=== PATIENT | female | born 1965 | race Caucasian/White ===

== ENCOUNTER 2020-04-30 17:42 | Emergency (ER) | payer OTHER ==
[2020-04-30 17:47] VITALS: BMI 33.3
--- NOTE | 2020-04-30 17:47 | PDOC ---
Rapid Medical Evaluation Chief Complaint: Pain Time Seen by Provider: 04/30/20 17:43 Medical Evaluation: Allergies Allergy/AdvReac Type Severity Reaction Status Date / Time No Known Allergies Allergy Verified 11/13/13 09:17 04/30/20 17:44 CC: abd pain due to hernia pain and unable to reduce, had it for years, no vomiting no other complaints Exam: tender firm mass palpable to upper umbilical region Plan: attempt further reduction Discharge Disposition - Diagnosis Hernia - Referrals - Patient Instructions - Post Discharge Activity
[2020-04-30] MEDS ORDERED: MAG HYDROX/AL HYDROX/SIMETH 30 ML UNIT-DOSE CUP PO ONE (18:02)
[2020-04-30] MEDS ORDERED: hydrALAZINE HCL 50 MG TABLET (FP) PO ONE (18:05)
--- NOTE | 2020-04-30 18:07 | PDOC ---
History of Present Illness - General Chief Complaint: Pain Stated Complaint: ABDOMINAL PAIN Time Seen by Provider: 04/30/20 17:43 - History of Present Illness Initial Comments: 04/30/20 18:06 55-year-old female with a past medical history of hypertension presents with epigastric pain x1 day no systemic symptoms no nausea vomitingNo chest pain Past History - Medical History Allergies/Adverse Reactions: Allergies Allergy/AdvReac Type Severity Reaction Status Date / Time No Known Allergies Allergy Verified 11/13/13 09:17 Home Medications: Ambulatory Orders Amlodipine Besylate 10 mg PO DAILY 04/30/20 Furosemide [Lasix] 20 mg PO DAILY 04/30/20 Hydralazine HCl 25 mg PO TID 04/30/20 Nebivolol HCl [Bystolic] 2.5 mg PO DAILY 04/30/20 HTN: Yes Hypercholesterolemia: Yes - Psycho-Social/Smoking History Smoking History: Never smoked Have you smoked in the past 12 months: No - Substance Abuse Hx (Audit-C & DAST Scrn) How often the patient has a drink containing alcohol: Never Score: In Men: 4 or > Positive; In Women: 3 or > Positive: 0 Screen Result (Pos requires Nsg. Audit-10AR): Negative In the last yr the pt used illegal drug/Rx for NonMed reason: No Score: Yes response is considered Positive: 0 Screen Result (Positive result requires Nsg. DAST-10): Negative Review of Systems - Review of Systems Constitutional: No: Fever ABD/GI: Yes: See HPI. No: Nausea, Vomiting *Physical Exam - Vital Signs Last Vital Signs Temp Pulse Resp BP Pulse Ox 99.5 F 70 17 179/84 H 99 04/30/20 17:43 04/30/20 17:43 04/30/20 17:43 04/30/20 17:43 04/30/20 17:43 - Physical Exam 04/30/20 18:07 GENERAL: The patient is awake, alert, and fully oriented, in no acute distress. HEAD: Normal with no signs of trauma. EYES: sclera anicteric, conjunctiva clear. ENT: Ears normal tympanic membranes normal oropharynx clear uvula midline NECK: Normal range of motion LUNGS: Breath sounds equal, clear to auscultation bilaterally. No wheezes, and no crackles. HEART: S1 and S2 without murmur, rub or gallop. ABDOMEN: Soft, nontender, normoactive bowel sounds. No guarding, no rebound. No masses. EXTREMITIES: Normal range of motion, no edema. No clubbing or cyanosis. No cords, erythema, or tenderness. NEUROLOGICAL: Cranial nerves II through XII grossly intact. PSYCH: Normal mood, normal affect. SKIN: Warm, Dry, normal turgor, no rashes or lesions noted. ED Treatment Course - LABORATORY CBC & Chemistry Diagram: 04/30/20 18:45 04/30/20 18:45 Medical Decision Making - Medical Decision Making 04/30/20 18:07 We will treat hypertension in the emergency room with double dose of hydralazine. Patient is on 25 mg at home. And epigastric pain without tenderness with a dose of Maalox. Will check laboratory work. 04/30/20 20:07 Patient's epigastric symptoms resolved with Maalox. Now complaining of headache. She is still hypertensive. I will repeat the vital signs will also get a CAT scan of her head. Troponin and EKG have been ordered troponin pending EKG shows a PVC 04/30/20 20:31 BP 154/91 on repeat 04/30/20 22:37 Patient signed out to the main emergency room Discharge - Discharge Information Problems reviewed: Yes Clinical Impression/Diagnosis: GERD (gastroesophageal reflux disease), Headache Clinical Impression/Diagnosis: (Ruled Out): Hernia Condition: Stable - Follow up/Referral Referrals: Kip Miner MD [Primary Care Provider] - - Patient Discharge Instructions - Post Discharge Activity
[2020-04-30] MEDS ORDERED: hydrALAZINE HCL 25 MG TABLET (FP) ONE (18:46)
[2020-04-30] MEDS ORDERED: MAG HYDROX/AL HYDROX/SIMETH 30 ML UNIT-DOSE CUP ONE (18:46)
[2020-04-30 19:05] LABS: BASO % 0.8 % (0-2.0); EOS % 1.1 % (0-4.5); HEMOGLOBIN 12.6 GM/dL (10.7-15.3); LYMPH % 22.4 % (8-40); MCH 28.9 pg (25.7-33.7); MCHC 33.2 g/dl (32.0-36.0); MEAN CELL VOLUME 86.9 fl (80-96); MEAN PLT VOLUME 8.4 fl (7.5-11.1); NEUT % 69.7 % (42.8-82.8); PLATELET COUNT 227 K/MM3 (134-434); RBC 4.37 M/mm3 (3.60-5.2); RDW 14.7 % (11.6-15.6); WHITE BLOOD COUNT 6.7 K/mm3 (4.0-10.0)
[2020-04-30 19:35] LABS: BILIRUBIN,TOTAL 0.4 mg/dL (0.2-1); BLOOD UREA NITROGEN 23.6 mg/dL (7-18); CALCIUM 9.6 mg/dL (8.5-10.1); CREATININE 1.1 mg/dL (0.55-1.3); POTASSIUM 4.3 mmol/L (3.5-5.1); TOT PROT 7.3 g/dl (6.4-8.2)
--- NOTE | 2020-04-30 19:41 | PDOC ---
*Physical Exam - Vital Signs Last Vital Signs Temp Pulse Resp BP Pulse Ox 99.5 F 58 L 18 171/90 H 98 04/30/20 17:43 04/30/20 19:02 04/30/20 19:02 04/30/20 19:02 04/30/20 19:02 ED Treatment Course - LABORATORY CBC & Chemistry Diagram: 04/30/20 18:45 04/30/20 18:45 - ADDITIONAL ORDERS Additional order review: Laboratory Results 04/30/20 18:45 Sodium 137 Potassium 4.3 Chloride 99 Carbon Dioxide 31 Anion Gap 8 BUN 23.6 H Creatinine 1.1 Est GFR (CKD-EPI)AfAm 65.00 Est GFR (CKD-EPI)NonAf 56.08 Random Glucose 90 Calcium 9.6 Total Bilirubin 0.4 AST 22 ALT 27 Alkaline Phosphatase 78 Total Protein 7.3 Albumin 4.0 Lipase 250 04/30/20 18:45 RBC 4.37 MCV 86.9 MCHC 33.2 RDW 14.7 MPV 8.4 Neutrophils % 69.7 Lymphocytes % 22.4 Monocytes % 6.0 Eosinophils % 1.1 Basophils % 0.8 - Medications Given in the ED: ED Medications Discontinued Medications Generic Name Dose Route Start Last Admin Trade Name Freq PRN Reason Stop Dose Admin Al Hydroxide/Mg Hydroxide 30 ml 04/30/20 18:02 04/30/20 19:01 Mylanta Oral Suspension - PO 04/30/20 18:03 30 ml ONCE ONE Administration Hydralazine HCl 50 mg 04/30/20 18:05 04/30/20 19:01 Apresoline - PO 04/30/20 18:06 50 mg ONCE ONE Administration Medical Decision Making - Medical Decision Making 04/30/20 19:40 Patient seen by the advanced practice provider under my supervision. Ancillary testing reviewed as necessary. I agree with plan as outlined by the advanced practice provider. Discharge - Discharge Information Problems reviewed: Yes Clinical Impression/Diagnosis: GERD (gastroesophageal reflux disease), Headache Condition: Stable - Follow up/Referral Referrals: Kip Miner MD [Primary Care Provider] - - Patient Discharge Instructions - Post Discharge Activity
[2020-04-30] MEDS ORDERED: ACETAMINOPHEN 500 MG TABLET (FP) PO ONE (22:12)
[2020-04-30] MEDS ORDERED: ACETAMINOPHEN 500 MG TABLET (FP) ONE (23:12)
--- NOTE | 2020-05-01 00:22 | PDOC ---
*Physical Exam - Vital Signs Last Vital Signs Temp Pulse Resp BP Pulse Ox 98.3 F 63 19 143/78 100 04/30/20 21:55 04/30/20 21:55 04/30/20 21:55 04/30/20 21:55 04/30/20 21:55 Heart Score/ECG Review - History History: Slightly suspicious - Electrocardiogram EKG: Normal - Age Age: 45-65 - Risk Factors Risk Factors Heart Score: Yes Hx Hypercholesterolemia, Yes Hx Hypertension Based on the list above the patient has:: 1-2 risk factors - Troponin Troponin: </= normal limit - Score Heart Score - Total: 2 ED Treatment Course - LABORATORY CBC & Chemistry Diagram: 04/30/20 18:45 04/30/20 18:45 - ADDITIONAL ORDERS Additional order review: Laboratory Results 04/30/20 04/30/20 20:04 18:45 Sodium 137 Potassium 4.3 Chloride 99 Carbon Dioxide 31 Anion Gap 8 BUN 23.6 H Creatinine 1.1 Est GFR (CKD-EPI)AfAm 65.00 Est GFR (CKD-EPI)NonAf 56.08 Random Glucose 90 Calcium 9.6 Total Bilirubin 0.4 AST 22 ALT 27 Alkaline Phosphatase 78 Troponin I 0.04 Total Protein 7.3 Albumin 4.0 Lipase 250 04/30/20 18:45 RBC 4.37 MCV 86.9 MCHC 33.2 RDW 14.7 MPV 8.4 Neutrophils % 69.7 Lymphocytes % 22.4 Monocytes % 6.0 Eosinophils % 1.1 Basophils % 0.8 - Medications Given in the ED: ED Medications Discontinued Medications Generic Name Dose Route Start Last Admin Trade Name Rani PRN Reason Stop Dose Admin Al Hydroxide/Mg Hydroxide 30 ml 04/30/20 18:02 04/30/20 19:01 Mylanta Oral Suspension - PO 04/30/20 18:03 30 ml ONCE ONE Administration Hydralazine HCl 50 mg 04/30/20 18:05 04/30/20 19:01 Apresoline - PO 04/30/20 18:06 50 mg ONCE ONE Administration Medical Decision Making - Medical Decision Making 05/01/20 00:21 Patient has minimal headache at this time. Denies nausea. Patient reports that she has no headache and no chest pain right now. Her second troponin is pending. Likely will discharge home if negative to have outpatient cardiology and neurology follow-up 05/01/20 01:31 patient has no [pain now. will d/ chome repeat troponin WNL. Discharge - Discharge Information Problems reviewed: Yes Clinical Impression/Diagnosis: GERD (gastroesophageal reflux disease) Qualifiers: Esophagitis presence: esophagitis presence not specified Qualified Code(s): K21.9 - Gastro-esophageal reflux disease without esophagitis Headache Qualifiers: Headache type: unspecified Headache chronicity pattern: acute headache Intractability: not intractable Qualified Code(s): R51 - Headache Chest pain Qualifiers: Chest pain type: unspecified Qualified Code(s): R07.9 - Chest pain, unspecified Condition: Stable Disposition: HOME - Follow up/Referral Referrals: Kip Mnier MD [Primary Care Provider] - Lam Tejada MD [Staff Physician] - Call tomorrow Richy Nava MD [Staff Physician] - Call tomorrow - Patient Discharge Instructions Patient Printed Discharge Instructions: DI for Atypical Chest Pain Additional Instructions: it is important you follow up with your doctor a referral for cardiology and neurology was given to you Additional Instructions: * Please call your personal physician to report your Emergency Department visit and to report your progress, if any. * If there is no improvement in symptoms in 2 days call your physician. * Return to the Emergency Department for any worsening symptoms. - Post Discharge Activity
[2020-05-01 01:15] VITALS: BP 163/82; PULSE 85; TEMP 98.4
--- NOTE | 2020-05-01 09:31 | EKG ---
Test Reason : Blood Pressure : / mmHG Vent. Rate : 061 BPM Atrial Rate : 061 BPM P-R Int : 184 ms QRS Dur : 102 ms QT Int : 436 ms P-R-T Axes : 071 -31 039 degrees QTc Int : 438 ms NORMAL SINUS RHYTHM LEFT ATRIAL ENLARGEMENT LEFT AXIS DEVIATION LEFT VENTRICULAR HYPERTROPHY NONSPECIFIC ST AND T WAVE ABNORMALITY ABNORMAL ECG Confirmed by MD KEMP MOYSES ([id number]) on 05/01/2020 9:31:02 AM Referred By: Confirmed By:USMAN KEMP MD
--- NOTE | 2020-05-01 09:35 | EKG ---
Test Reason : Blood Pressure : / mmHG Vent. Rate : 070 BPM Atrial Rate : 070 BPM P-R Int : 186 ms QRS Dur : 106 ms QT Int : 400 ms P-R-T Axes : 067 -21 040 degrees QTc Int : 432 ms SINUS RHYTHM WITH OCCASIONAL PREMATURE VENTRICULAR COMPLEXES LEFT ATRIAL ENLARGEMENT LEFT VENTRICULAR HYPERTROPHY ABNORMAL ECG NO PREVIOUS ECGS AVAILABLE Confirmed by MD KEMP MOYSES ([id number]) on 05/01/2020 9:35:17 AM Referred By: Confirmed By:USMAN KMEP MD
== END 2020-05-01 02:12 | disposition home or self-care (01) ==
LOC: JER 17:42
DX: K21.9 Gastro-esophageal reflux disease without esophagitis (principal); R51 Headache
CPT/HCPCS: 36415; 70450-TC; 71046-TC-FY; 80053; 83690; 84484; 85025; 93005; 93010; 99285-25

== ENCOUNTER 2021-02-23 21:13 | Emergency (ER) | payer OTHER ==
[2021-02-23 21:23] VITALS: TEMP 98.9; BMI 33.3
[2021-02-23 21:42] VITALS: BP 168/88; PULSE 58
[2021-02-23] MEDS ORDERED: FAMOTIDINE 20 MG/50 ML IVPB 20 MG/50 ML MG IVPB ONE ×2 (22:27→22:46)
[2021-02-23] MEDS ORDERED: MAG HYDROX/AL HYDROX/SIMETH -MYLANTA- ORAL SUSPENSION PO ONE (22:27)
[2021-02-23] MEDS ORDERED: ACETAMINOPHEN 325 MG TABLET (FP) PO ONE (22:28)
[2021-02-23] MEDS ORDERED: SODIUM CHLORIDE 0.9% 500 ML INFUS.BAG IV ONE (22:33)
[2021-02-23] MEDS ORDERED: MAG HYDROX/AL HYDROX/SIMETH 30 ML UNIT-DOSE CUP ONE (22:45)
[2021-02-23] MEDS ORDERED: ACETAMINOPHEN 325 MG TABLET (FP) ONE (22:45)
[2021-02-23 22:51] LABS: BASO % 0.7 % (0-2.0); EOS % 0.6 % (0-4.5); HEMATOCRIT 37.4 % (32.4-45.2); HEMOGLOBIN 12.7 GM/dL (10.7-15.3); LYMPH % 10.6 % (8-40); MCH 29.5 pg (25.7-33.7); MEAN CELL VOLUME 86.7 fl (80-96); MEAN PLT VOLUME 8.8 fl (7.5-11.1); NEUT % 85.1 % (42.8-82.8); PLATELET COUNT 231 K/MM3 (134-434); RBC 4.31 M/mm3 (3.60-5.2); RDW 14.3 % (11.6-15.6); WHITE BLOOD COUNT 8.4 K/mm3 (4.0-10.0)
[2021-02-23 23:20] LABS: BLOOD UREA NITROGEN 13.4 mg/dL (7-18); CALCIUM 8.5 mg/dL (8.5-10.1)
[2021-02-23 23:21] LABS: ALBUMIN 3.6 g/dl (3.4-5.0)
[2021-02-23 23:23] LABS: PH,URINE 6.5 (5.0-8.0); URINE APPEARANCE CLEAR; URINE BILIRUBIN NEGATIVE (NEGATIVE); URINE COLOR YELLOW; URINE GLUCOSE (UA) NEGATIVE (NEGATIVE); URINE KETONE NEGATIVE (NEGATIVE); URINE LEUK ESTERASE NEGATIVE (NEGATIVE); URINE NITRITE NEGATIVE (NEGATIVE); URINE PROTEIN TRACE (NEGATIVE); URINE UROBILINOGEN 0.2 mg/dL (0.2-1.0)
[2021-02-23 23:24] LABS: CREATININE 0.9 mg/dL (0.55-1.3)
[2021-02-23 23:26] LABS: BILIRUBIN,TOTAL 0.3 mg/dL (0.2-1); TOT PROT 6.8 g/dl (6.4-8.2)
[2021-02-23] MEDS ORDERED: POTASSIUM CHLORIDE TABS 20 MEQ TABLET.ER (FP) PO ONE (23:56)
[2021-02-23] MEDS ORDERED: MAGNESIUM SULF 50% (8.12 MEQ/2 ML-1 GM VIAL) IVPB ONE (23:56)
[2021-02-24] MEDS ORDERED: MAGNESIUM SULFATE IN WATER 2 GM/50 ML IVPB IVPB ONE (00:02)
[2021-02-24] MEDS ORDERED: POTASSIUM CHLORIDE TABS 20 MEQ TABLET.ER (FP) PO ONE (00:02)
== END 2021-02-24 00:48 | disposition home or self-care (01) ==
LOC: JER 21:13
PROC: 3E033NZ Introduction of Analgesics, Hypnotics, Sedatives into Peripheral Vein, Percutaneous Approach (ICD-10-PCS; principal; 2021-02-23)
PROC: 3E033GC Introduction of Other Therapeutic Substance into Peripheral Vein, Percutaneous Approach (ICD-10-PCS; 2021-02-23)
DX: K42.9 Umbilical hernia without obstruction or gangrene (principal); R10.13 Epigastric pain
CPT/HCPCS: 36415; 71046-TC-FY; 74176-TC; 80053; 81003; 82550; 82553; 83605; 83690; 84484; 85025; 87086; 93005; 93010; 99285-25

== ENCOUNTER 2021-03-13 20:30 | Emergency (ER) | payer OTHER ==
[2021-03-13 20:43] VITALS: TEMP 98.5; BMI 30.7
[2021-03-13] MEDS ORDERED: morphine CARPU-JECT 4 MG/1 ML DISP.SYRIN IVPUSH ONE (21:17)
[2021-03-13] MEDS ORDERED: morphine SULFATE 4 MG/ML VIAL ONE (21:22)
[2021-03-13 21:52] LABS: BASO % 0.6 % (0-2.0); EOS % 1.3 % (0-4.5); HEMATOCRIT 41.3 % (32.4-45.2); HEMOGLOBIN 13.7 GM/dL (10.7-15.3); LYMPH % 14.7 % (8-40); MCH 28.7 pg (25.7-33.7); MCHC 33.1 g/dl (32.0-36.0); MEAN CELL VOLUME 86.9 fl (80-96); MEAN PLT VOLUME 8.4 fl (7.5-11.1); MONO % 4.8 % (3.8-10.2); NEUT % 78.6 % (42.8-82.8); PLATELET COUNT 250 K/MM3 (134-434); RBC 4.75 M/mm3 (3.60-5.2); RDW 14.5 % (11.6-15.6); WHITE BLOOD COUNT 9.5 K/mm3 (4.0-10.0)
[2021-03-13 21:58] LABS: INR 0.97 (0.83-1.09); PROTHROMBIN TIME (PATIENT) 11.7 SEC (9.7-13.0)
[2021-03-13 22:08] LABS: CHLORIDE 99 mmol/L (98-107); SODIUM 139 mmol/L (136-145)
[2021-03-13 22:10] LABS: BLOOD UREA NITROGEN 14.9 mg/dL (7-18); CALCIUM 8.5 mg/dL (8.5-10.1); LIPASE 140 U/L (73-393)
[2021-03-13 22:11] LABS: ALBUMIN 3.8 g/dl (3.4-5.0); ANION GAP 7 MMOL/L (8-16); CO2 34 mmol/L (21-32); GLUCOSE,RANDOM 112 mg/dL (74-106)
[2021-03-13 22:13] LABS: CREATININE 0.8 mg/dL (0.55-1.3); SGOT/AST 15 U/L (15-37); SGPT/ALT 30 U/L (13-61)
[2021-03-13 22:15] LABS: BILIRUBIN,TOTAL 0.3 mg/dL (0.2-1); TOT PROT 7.2 g/dl (6.4-8.2)
[2021-03-13 22:16] LABS: ALK PHOS 85 U/L (45-117)
[2021-03-14 01:03] VITALS: BP 151/89; PULSE 51
== END 2021-03-14 01:06 | disposition home or self-care (01) ==
LOC: JER 20:30
PROC: 3E033NZ Introduction of Analgesics, Hypnotics, Sedatives into Peripheral Vein, Percutaneous Approach (ICD-10-PCS; principal; 2021-03-13)
DX: K43.9 Ventral hernia without obstruction or gangrene (principal); R10.33 Periumbilical pain
CPT/HCPCS: 36415; 74177-TC; 80053; 83605; 83690; 84702; 85025; 85610; 93005; 93010; 99285-25

== ENCOUNTER 2024-10-10 09:45 | Inpatient (IN) | payer OTHER ==
[2024-10-10 09:52] VITALS: BMI 29.9
[2024-10-10 10:59] LABS: BASO % 0.8 % (0-2.0); EOS % 0.5 % (0-4.5); HEMATOCRIT 45.7 % (32.4-45.2); HEMOGLOBIN 14.8 GM/dL (10.7-15.3); LYMPH % 19.2 % (8-40); MCH 27.9 pg (25.7-33.7); MCHC 32.3 g/dl (32.0-36.0); MEAN CELL VOLUME 86.5 fl (80-96); MEAN PLT VOLUME 8.6 fl (7.5-11.1); MONO % 10.1 % (3.8-10.2); NEUT % 69.4 % (42.8-82.8); PLATELET COUNT 179 10^3/uL (134-434); RBC 5.29 M/mm3 (3.60-5.2); RDW 14.6 % (11.6-15.6); WHITE BLOOD COUNT 4.8 K/mm3 (4.0-10.0)
[2024-10-10 11:16] LABS: POTASSIUM 3.4 mmol/L (3.5-5.1)
[2024-10-10 11:18] LABS: CALCIUM 8.9 mg/dL (8.5-10.1)
[2024-10-10 11:19] LABS: ALBUMIN 3.5 g/dl (3.4-5.0); BLOOD UREA NITROGEN 14.6 mg/dL (7-18)
[2024-10-10 11:22] LABS: CREATININE 1.1 mg/dL (0.55-1.3)
[2024-10-10 11:24] LABS: BILIRUBIN,TOTAL 0.5 mg/dL (0.2-1)
[2024-10-10] MEDS ORDERED: ACETAMINOPHEN 325 MG TABLET (FP) ONE (11:29)
[2024-10-10] MEDS: ACETAMINOPHEN 500 MG TABLET (FP) PO ONE (12:00)
[2024-10-10 12:14] LABS: HIV INTERPRETATION NEGATIVE (NEGATIVE)
[2024-10-10 12:37] LABS: CALCIUM 8.8 mg/dL (8.5-10.1)
[2024-10-10 12:38] LABS: BLOOD UREA NITROGEN 14.2 mg/dL (7-18)
[2024-10-10] MEDS ORDERED: POTASSIUM CHLORIDE TABS 20 MEQ TABLET.ER (FP) PO ONE (13:14)
[2024-10-10] MEDS ORDERED: KCL 10 MEQ IVPB 10 MEQ/100 ML INFUS.BAG IVPB ONE ×2 (13:14→14:31)
[2024-10-10] MEDS: POTASSIUM CHLORIDE TABS 20 MEQ TABLET.ER (FP) PO ONE (13:33)
[2024-10-10] MEDS: KCL 10 MEQ IVPB 10 MEQ/100 ML INFUS.BAG IVPB SCH (13:33)
[2024-10-10] MEDS: SODIUM CHLORIDE 1,000 ML IV ONE (13:33)
[2024-10-10] MEDS ORDERED: APIXABAN 5 MG TABLET ONE (14:04)
[2024-10-10] MEDS ORDERED: ASPIRIN 81 MG CHEWABLE TABLETS ONE (14:04)
[2024-10-10] MEDS: ASPIRIN 81 MG CHEWABLE TABLETS PO ONE (14:07)
[2024-10-10] MEDS: APIXABAN 5 MG TABLET PO ONE (14:07)
[2024-10-10] MEDS ORDERED: LORazepam 2 MG/ML SDV VIAL ONE (14:08)
[2024-10-10 20:55] LABS: POTASSIUM 3.3 mmol/L (3.5-5.1)
[2024-10-10 20:56] LABS: CALCIUM 7.9 mg/dL (8.5-10.1)
[2024-10-10 20:57] LABS: BLOOD UREA NITROGEN 13.9 mg/dL (7-18)
[2024-10-10 21:00] LABS: CREATININE 0.9 mg/dL (0.55-1.3)
[2024-10-10] MEDS: hydrALAZINE HCL 25 MG TABLET (FP) PO SCH (21:15)
[2024-10-10] MEDS: HEPARIN NA (PORCINE) 5,000 UNITS/ML 1ML VIAL SQ SCH (21:16)
[2024-10-10] MEDS: OSELTAMIVIR PHOSPHATE 75 MG CAPSULE PO SCH (21:16)
[2024-10-11] MEDS: ACETAMINOPHEN 500 MG TABLET (FP) PO ONE (00:30)
[2024-10-11 07:38] LABS: BASO % 0.6 % (0-2.0); EOS % 0.4 % (0-4.5); HEMATOCRIT 40.1 % (32.4-45.2); HEMOGLOBIN 13.7 GM/dL (10.7-15.3); LYMPH % 28.6 % (8-40); MCHC 34.1 g/dl (32.0-36.0); MEAN CELL VOLUME 85.1 fl (80-96); MEAN PLT VOLUME 8.6 fl (7.5-11.1); MONO % 13.3 % (3.8-10.2); NEUT % 57.1 % (42.8-82.8); PLATELET COUNT 153 10^3/uL (134-434); RBC 4.71 M/mm3 (3.60-5.2); RDW 14.7 % (11.6-15.6); WHITE BLOOD COUNT 3.4 K/mm3 (4.0-10.0)
[2024-10-11 07:56] LABS: POTASSIUM 3.1 mmol/L (3.5-5.1)
[2024-10-11 08:01] LABS: ALBUMIN 3.1 g/dl (3.4-5.0); BLOOD UREA NITROGEN 11.7 mg/dL (7-18); CALCIUM 8.6 mg/dL (8.5-10.1)
[2024-10-11 08:05] LABS: CREATININE 0.8 mg/dL (0.55-1.3)
[2024-10-11 08:06] LABS: BILIRUBIN,TOTAL 0.3 mg/dL (0.2-1); TOT PROT 5.9 g/dl (6.4-8.2)
[2024-10-11] MEDS: APIXABAN 5 MG TABLET PO SCH (09:40)
[2024-10-11] MEDS: amLODIPine BESYLATE 10 MG TABLET (FP) PO SCH (09:40)
[2024-10-11] MEDS: FUROSEMIDE 20 MG TABLET (FP) PO SCH (09:40)
[2024-10-11] MEDS: NEBIVOLOL 2.5 MG TABLET (FP) PO SCH (09:40)
[2024-10-11] MEDS: PANTOPRAZOLE 40 MG TABLET PO SCH (10:13)
[2024-10-11 15:40] LABS: N-TERMINAL BNP 1624.2 pg/ml (5-125)
[2024-10-11] MEDS: SACUBITRIL/VALSARTAN 24 MG-26 MG TABLET PO SCH (21:23)
[2024-10-12 01:43] VITALS: RESP 18
[2024-10-12 07:07] VITALS: TEMP 98.8
[2024-10-12 08:45] LABS: POTASSIUM 3.4 mmol/L (3.5-5.1)
[2024-10-12 08:49] LABS: ALBUMIN 3.2 g/dl (3.4-5.0); BLOOD UREA NITROGEN 8.6 mg/dL (7-18); CALCIUM 8.6 mg/dL (8.5-10.1)
[2024-10-12 08:53] LABS: CREATININE 0.8 mg/dL (0.55-1.3)
[2024-10-12 08:54] LABS: BILIRUBIN,TOTAL 0.3 mg/dL (0.2-1); TOT PROT 6.4 g/dl (6.4-8.2)
[2024-10-12] MEDS: SPIRONOLACTONE 25 MG TABLET PO SCH (09:39)
[2024-10-12] MEDS: EMPAGLIFLOZIN (JARDIANCE) 10 MG TABLET PO SCH (09:55)
[2024-10-12 16:14] VITALS: BP 102/53; PULSE 95
== END 2024-10-12 18:08 | disposition home or self-care (01) | DRG 204 ==
LOC: JER 09:45 → JERBED 13:16 → OBSVTOIN 17:29 → J4S 17:42
PROVIDERS: ADMIT Family Medicine; ATTEND Internal Medicine
DX: R55 Syncope and collapse (principal); E78.5 Hyperlipidemia, unspecified; I25.10 Atherosclerotic heart disease of native coronary artery without angina pectoris; I11.0 Hypertensive heart disease with heart failure; I50.22 Chronic systolic (congestive) heart failure; J10.1 Influenza due to other identified influenza virus with other respiratory manifestations; I24.9 Acute ischemic heart disease, unspecified; R07.89 Other chest pain; K21.9 Gastro-esophageal reflux disease without esophagitis; I48.0 Paroxysmal atrial fibrillation; E87.6 Hypokalemia; E86.0 Dehydration; W18.30XA Fall on same level, unspecified, initial encounter; Y93.9 Activity, unspecified; Y92.009 Unspecified place in unspecified non-institutional (private) residence as the place of occurrence of the external cause; Y99.9 Unspecified external cause status
CPT/HCPCS: 0241U-QW; 36415; 70450-TC; 71046-TC-FY; 72125-TC; 80048; 80053; 80061; 83036; 83880; 84443; 84484; 85025; 86803; 87389; 93005; 93010; 99285-25; G0378; J1644